=== PATIENT | male | born 1990 | race African-American/Black ===

== ENCOUNTER 2021-10-25 08:08 | Outpatient (REF) | payer OTHER, SELFPAY ==
[2021-10-25 08:22] LABS: Binax Internal Control QC Valid; Binax Now Covid-19 Ag Negative (Negative)
== END 2021-10-25 08:09 | disposition home or self-care (01) ==
LOC: HO.LAB 08:08
PROVIDERS: Visit Provider Internal Medicine
DX: Z20.822 Contact with and (suspected) exposure to COVID-19 (principal)
CPT/HCPCS: C9803

== ENCOUNTER 2025-03-02 11:38 | Outpatient (REF) | payer OTHER, SELFPAY ==
[2025-03-02 12:01] LABS: MANUAL DIFF FLAG NO
[2025-03-02 12:35] LABS: Basophils Absolute Auto 0.1 X10*3/uL (0.0-0.2); Basophils Percent Auto 0.8 % (0-2); Eosinophils Absolute Auto 0.3 X10*3/uL (0.0-0.4); Eosinophils Percent Auto 2.3 % (0-4); Hematocrit 40.5 % (42.0-52.0); Hemoglobin 14.2 g/dl (14.0-18.0); Imm Gran Abs Auto 0.07 X10*3/uL (0.00-0.03); Imm Gran Pct Auto 0.5 % (0.0-0.4); Lymphocytes Absolute Auto 3.5 X10*3/uL (1.2-4.9); Lymphocytes Percent Auto 24.5 % (20-40); Mean Corpuscular HGB Conc 35.1 g/dl (31.0-36.0); Mean Corpuscular Hemoglobin 29.5 pg (27.0-33.0); Mean Corpuscular Volume 84.2 fL (80.0-98.0); Mean Platelet Volume 9.6 fL (9.4-12.4); Monocytes Absolute Auto 0.9 X10*3/uL (0.1-1.2); Monocytes Percent Auto 5.9 % (2-11); Neutrophils Absolute Auto 9.6 x10*3/uL (2.0-8.3); Platelet Count 305 X10*3/uL (160-400); Red Blood Count 4.81 X10*6/uL (4.60-5.80); Red Cell Distribution Width 12.7 % (11.0-16.0); White Blood Count 14.5 X10*3/uL (4.8-10.8)
--- OUTSIDE RECORDS SUMMARY | 2025-03-02 12:54 | XMS_ITS | Continuity of Care Document ---
Author Organization [facility], [facility] Address [address] [place] [address] [place] [address] Assessment No assessment recorded. Plan of Treatment Reminders Order Date Submit Date Provider Last Modified By Organization Details Last Modified Time Details Appointments FOLLOW UP 15 2024 01:30P M DR COBURN Not available Not available Not available Lab CMP, serum or plasma 2024 025 [facility], [address] [place] [address], [id number], 03/01/2025 12:25:26 lipid panel, blood 2024 025 [facility], [address] [place] [address], [id number], 03/01/2025 12:25:27 vitamin D, 25-hydrox y, total, serum 2024 025 [facility], [address] [place] [address], [id number], 03/01/2025 12:25:27 CBC w/ diff 2024 025 [facility], [address] [place] [address], [id number], 03/01/2025 12:25:26 testoster one, total, serum 2024 025 [facility], [address] [place] [address], [id number], 03/01/2025 12:25:26 Referral None recorded. Procedures None recorded. Surgeries None recorded. Imaging None recorded. Medication Orders minoxidil 2 % topical solution 2024 025 [id number], [address], [place], [address], 03/01/2025 12:32:44 Patient TargetsNo targets recorded. Patient Instructions Encounter Date Encounter Id Patient Instructions Last Modified By Organization Details Last Modified Time 03/01/2025 [id number] hair loss from alopecia areata: care instructions [email or web address] Not available 03/01/2025 12:32:42 Reason for Referral None Reported. Problems Name Problem SNOMED Code Status Onset Date Resolution Date Notes Provider Name and Address Organization Details Recorded Time History of alcohol use disorder Completed 202403/01/2025 Julio Coburn DO [address] [place] [address], [id number], [facility] 12:27:52 Steatoti c liver disease 594464255 Active 2024 Julio Coburn DO [address] [place] [address], [id number], [facility] 12:28:34 Chronic post-tra umatic stress disorder 918395856 Active 2024 Julio Coburn DO [address] [place] [address], [id number], [facility] 12:28:53 Mixed anxiety and depressi ve disorder 730794197 Active 2024 Julio Coburn DO [address] [place] [address], [address], [facility] 12:29:07 Primary insomnia 0127589 Active 2024 Julio Coburn DO [address] [place] [address], [phone], [facility] 12:29:25 Alopecia 44697634 Active 2024 Julio Coburn DO [address], [place], [address], [facility] 12:29:40 Problem Notes None recorded. Medical Equipment None Reported. Allergies No known drug allergies Medications Name Sig Start Date Stop Date Status Note LastModified by Organization Details LastModified Time cyclobenzap rine 10 mg tablet TAKE 1 TABLET 3 TIMES FOR MUSCLE SPASM MAY CAUSE DROWSINES S AVOID DRIVE OR WORK WHILE ON THIS 03/01 completed Not Available Not Available Not Available ibuprofen 800 mg tablet TAKE 1 TABLET BY MOUTH THREE TIMES A DAY FOR PAIN FOR 10 DAYS 03/01 completed Not Available Not Available Not Available mirtazapine 15 mg tablet Take 1 tablet every day by oral route as needed. active Not Available Not Available No t Available minoxidil 2 % topical solution APPLY 1 MILLILITE R BY TOPICAL ROUTE 2 TIMES PER DAY , EVERY DAY, DIRECTLY ONTO THE SCALP IN THE HAIR LOSS AREA 2024 active Not Available Not Available Not Avai lable Vitals Date Recorded Body weight Heart rate Oxygen saturation Oxygen saturation in Arterial blood by Pulse oximetry Systolic blood pressure Diastolic blood pressure Provider Name and Address Organization Details Last Updated DateTime 5 86581.9 3 g 73 /min 95 % 95 % 118 mm[Hg] 72 mm[Hg] Sharon Dailey [facility] 12:00:07 Social History None recorded. Functional Status None recorded. Mental Status None recorded. Family History Nothing Reported. Medical History No medical history recorded. Past Encounters Encounter ID Performer Location Encounter Start Date Encounter Closed Date Diagnosis/Indication Diagnosis SNOMED-CT Code Diagnosis ICD10 Code Diagnosis Note [id number] Julio Coburn DO [facility] [address] [address] 03/01/2025 11:45:29 03/01/2025 13:24:46 Depression screening 590354762 Z13.31 neg but recent stress discussed etc Well adult 445019843 Z00 .00 doing well needs fbw Alopecia 83701348 L65.9 Health Concerns Section Related Observation LastModified by Organization Detai ls LastModified Time None Recorded Concern Status LastModified by Organization Details LastModified Time None Recorded Payers Encounter Date Sequence Insurance Name Policy Number Policy Velázquez Covered Member ID Velázquez Member ID Guarantor Name 03/01/2025 1 [facility] [place] Santanajian Lenin [id number] Paolo Phelps Notes Date Note Type Note Provider Name a nd Address Organization Details Recorded Time 5 text/html Annual WellnessReported bypatient.Diet and Nutrition:healthy diet Fracture Risk:no history of fractures; no recent explained fracture; no sudden unexplained fractures; no previous musculoskeletal injuries Physical Activity:exercises on a regular basis; recent increase in physical activity; good physical condition Additional Lifestyle Factors:no tobacco use; no alcohol intake; stopped drinking alcohol Depression Risk:never feels sad, empty, or tearful; no loss of interest in activities; no significant changes in weight; no sleep disturbances or insomnia; no agitation; no loss of energy; no feelings of worthlessness or guilt; no thoughts of suicide; no history of depression; no history of mood disorders Hearing:no loss of hearing Vision:no vision problems Julio Coburn, DO [address] [place], [id number] 03/01/2025 12:33:31
[2025-03-02 13:07] LABS: Alanine Aminotransferase 33 U/L (0-40); Albumin Level 4.2 g/dL (3.5-5.0); Alkaline Phosphatase 68 U/L (39-117); Anion Gap 8 (12-20); Aspartate Amino Transferase 42 U/L (5-37); Bilirubin Total 0.3 mg/dL (0.0-1.0); Blood Urea Nitrogen 21 mg/dL (9-16); Calcium 9.4 mg/dL (8.4-10.2); Carbon Dioxide 29 mmol/L (22-29); Chloride 106 mmol/L (96-108); Cholesterol 154 mg/dL (<200); Estimated Glomerular Filt Rate 51; Glucose Random 78 mg/dL (60-115); HDL Cholesterol 43 mg/dL (>40); LDL Cholesterol Calculated 79 mg/dL (<100); Potassium 4.4 mmol/L (3.3-5.1); Sodium 139 mmol/L (135-145); Total Protein 7.4 g/dL (6.5-8.0); Triglycerides 164 mg/dL (<150)
[2025-03-02 13:21] LABS: Vitamin D 25-OH Total 18.6 ng/mL (>30)
[2025-03-06 17:38] LABS: Testosterone, Total 543 ng/dL (250-1100)
== END 2025-03-02 11:39 | disposition home or self-care (01) ==
LOC: HO.LAB 11:38
PROVIDERS: PCP Internal Medicine; Visit Provider Internal Medicine
DX: Z00.00 Encounter for general adult medical examination without abnormal findings (principal)
CPT/HCPCS: 36415; 80053; 80061; 82306; 84403; 85025